=== PATIENT | female | born 1980 | race African-American/Black ===

== ENCOUNTER 2016-06-24 14:56 | Emergency (ER) | payer OTHER ==
[~2016-06-24] VITALS: Ht 175.3 cm; Wt 61.7 kg
[2016-06-24] MEDS ORDERED: NEURONTIN100 MG ORAL (15:09)
[2016-06-24] MEDS ORDERED: CYMBALTA30 MG ORAL (15:09)
[2016-06-24 15:14] VITALS: BP 129/66
[2016-06-24] MEDS ORDERED: Morphine Sulfate 4mg/ml Inj IVP ONE (15:30)
--- NOTE | 2016-06-24 15:34 | Emergency Room Report ---
History of Present Illness General Chief Complaint: Abdominal Pain Source: Patient (MAKSIM ALEJO) Present Illness HPI 35 y/o female c/o RLQ abd pain x 4 hours ago. Pain is sudden onset in RLQ and 10 /10 assoc w/ n/v. No provoking or relieving factors.Has hx of ovarian cysts w/o rupture with chronic abdominal pain that has been evaluated by PCP. Denies any current n/v/f/c/d, abd pain, back pain, neck pain, photophobia, phonophobia, CP , SOB or headache. (MAKSIM ALEJO.[email or web address]) Allergies: Coded Allergies: No Known Allergies (Unverified , 06/24/16) Patient History Past Medical History: see triage record Pertinent Family History: other - ovarian cyst Last Menstrual Period: 06/02/16 Now: No : 0 Para: 0 Immunizations: UTD Reviewed Nursing Documentation: PMH: Agreed, PSxH: Agreed (MAKSIM ALEJO) Nursing Documentation-PMH Hx Cardiac Problems: Yes Hx Gastrointestinal Problems: Yes - ENDOMETRIOSIS ([email or web address]) Review of Systems All Other Systems: negative except mentioned in HPI (MAKSIM ALEJO) Physical Exam Vital Signs Date Time Temp Pulse Resp B/P Pulse Ox O2 Delivery O2 Flow Rate FiO2 06/24/16 15:02 129/66 Room Air 06/24/16 15:14 98.4 94 19 100 Sp02 EP Interpretation: reviewed, normal General Appearance: alert, GCS 15, non-toxic, mild distress - in obvious pain Head: normocephalic, atraumatic Eyes: bilateral eye PERRL, bilateral eye normal inspection ENT: hearing grossly normal, normal pharynx, no angioedema, normal voice Respiratory: chest non-tender, lungs clear, normal breath sounds, speaking full sentences Cardiovascular #1: regular rate, rhythm, no edema Gastrointestinal: normal bowel sounds, soft, non-distended, guarding - RLQ, tenderness - RLQ Genitourinary: no CVA tenderness Neurologic: alert, oriented x3, responsive, motor strength/tone normal, sensory intact, speech normal Skin: normal color, no rash, warm/dry, well hydrated Lymphatic: no adenopathy ([email or web address] [email or web address]) Medical Decision Making PA Attestation Dr. Clancy is my supervising physician with whom patient management has been discussed with. (MAKSIM ALEJO) Diagnostic Impression: Primary Impression: Ovarian cyst Qualified Codes: N83.201 - Unspecified ovarian cyst, right side Additional Impression: Acute cystitis Qualified Codes: N30.00 - Acute cystitis without hematuria ER Course Pt. presents to the ED c/o abdominal pain Ddx considered but are not limited to appendicitis, ovarian torsion, pyelonephritis, crohns, ulcerative colitis, gastroenteritis, ovarian cyst, ectopic Vital signs: are WNL, pt. is afebrile H&PE are most consistent with Ovarian Cyst rupture ORDERS: CT abd pelvis w/ PO and IV contast, UA, CBC, CMP, bHCG ED INTERVENTIONS: Morphine, Toradol, Zofran DISCHARGE: At this time pt. is stable for d/c to home. Eating sandwich and soda from break room prior to discharge. Will provide printed patient care instructions, and any necessary prescriptions. Care plan and follow up instructions have been discussed with the patient prior to discharge. Laboratory Tests Test 06/24/16 15:50 06/24/16 19:05 White Blood Count 7.4 K/UL (4.8-10.8) Red Blood Count 3.90 M/UL (4.20-5.40) L Hemoglobin 12.9 G/DL (12.0-16.0) Hematocrit 36.4 % (37.0-47.0) L Mean Corpuscular Volume 93 FL (80-99) Mean Corpuscular Hemoglobin 33.0 PG (27.0-31.0) H Mean Corpuscular Hemoglobin Concent 35.4 G/DL (32.0-36.0) Red Cell Distribution Width 10.9 % (11.6-14.8) L Platelet Count 242 K/UL (150-450) Mean Platelet Volume 6.0 FL (6.5-10.1) L Neutrophils (%) (Auto) 74.5 % (45.0-75.0) Lymphocytes (%) (Auto) 15.3 % (20.0-45.0) L Monocytes (%) (Auto) 8.7 % (1.0-10.0) Eosinophils (%) (Auto) 0.5 % (0.0-3.0) Basophils (%) (Auto) 1.0 % (0.0-2.0) Sodium Level 137 mEQ/L (135-145) Potassium Level 3.6 mEQ/L (3.4-4.9) Chloride Level 98 mEQ/L (98-107) Carbon Dioxide Level 23 mEQ/L (20-30) Anion Gap 16 (5-15) H Blood Urea Nitrogen 11 mg/dL (7-23) Creatinine 0.9 mg/dL (0.5-0.9) Estimate Glomerular Filtration Rate > 60 mL/min (>60) Glucose Level 111 mg/dL (74-106) H Calcium Level 9.5 mg/dL (8.6-10.2) Total Bilirubin 0.3 mg/dL (0.0-1.2) Aspartate Amino Transferase (AST) 17 U/L (5-40) Alanine Aminotransferase (ALT) 13 U/L (3-33) Alkaline Phosphatase 45 U/L (35-104) Total Protein 6.6 g/dL (6.6-8.7) Albumin 4.2 g/dL (3.5-5.2) Globulin 2.4 g/dL Albumin/Globulin Ratio 1.7 (1.0-2.7) Lipase 29 U/L (< 60) Human Chorionic Gonadotropin, Quant < 1 mIU/mL Urine Color Pale yellow Urine Appearance Clear Urine pH 9 (4.5-8.0) Urine Specific [place] 1.015 (1.005-1.035) Urine Protein Negative (NEGATIVE) Urine Glucose (UA) 1+ (NEGATIVE) H Urine Ketones 2+ (NEGATIVE) H Urine Occult Blood Negative (NEGATIVE) Urine Nitrite Negative (NEGATIVE) Urine Bilirubin Negative (NEGATIVE) Urine Urobilinogen Normal MG/DL (0.0-1.0) Urine Leukocyte Esterase 1+ (NEGATIVE) H Urine RBC 2-4 /HPF (0 - 2) H Urine WBC 5-10 /HPF (0 - 2) H Urine Squamous Epithelial Cells Moderate /LPF (NONE/OCC) H Urine Amorphous Sediment Few /LPF (NONE) H Urine Bacteria Moderate /HPF (NONE) H (MAKSIM ALEJO) ER Course I evaluated this patient in the ED at [facility] with my advanced practice provider ([employer]) colleague, who practices under my general supervision. My impressions concur with the advanced practice provider in regards to their obtained history of present illness, physical exam, general management, diagnosis, and disposition. In particular, I agree with PA-obtained interpretation of imaging, rhythm strip. For the evening and overnight shifts, we do not have the benefit of an in-house Radiologist to review xrays so our interpretation may be limited. Patients are to be discharged only with normal vital signs (or if we discussed a particular exception), a plan for follow-up care, and understand to return to the ED for worsening symptoms. Please see midlevel healthcare providers note for further details. (WINSOME CLANCY M.D.) CT/MRI/US Diagnostic Results CT/MRI/US Diagnostic Results : Imaging Test Ordered: CT Abd/Pelvis with PO and IV contast Impression 5.5 cm cystic lesion rt adnexa most likely physiologic ovarian; cannot r/o adj hydrosalpinx; adj pelvic free fluid suggests recent cyst rupture; rest incl appx NAD; uterine myometrial masses c/w fibroids (SABRY,TAMEEM P.A.) Last Vital Signs Date Time Temp Pulse Resp B/P Pulse Ox O2 Delivery O2 Flow Rate FiO2 06/24/16 15:14 98.4 94 19 129/66 100 Room Air (SABRY,TAMEEM P.A.) Disposition: HOME, SELF-CARE Condition: Stable Scripts Ondansetron Odt* (ZOFRAN ODT*) 8 Mg Tab.rapdis 8 MG ORAL Q6H Y for Nausea & Vomiting, #20 TAB Prov: SABRY,TAMEEM P.A. 06/24/16 Hydrocodone Bit/Acetaminophen 5-325* (NORCO 5-325*) 1 Each Tablet 1 TAB ORAL Q6H Y for For Pain, #10 TAB 0 Refills Prov: SABRY,TAMEEM P.A. 06/24/16 Ibuprofen* (MOTRIN*) 600 Mg Tablet 600 MG ORAL Q8H Y for For Pain, #30 TAB 0 Refills Prov: SABRY,TAMEEM P.A. 06/24/16 Cephalexin* (KEFLEX*) 500 Mg Capsule 500 MG ORAL EVERY 12 HOURS, #14 CAP 0 Refills Prov: SABRY,TAMEEM P.A. 06/24/16 Patient Instructions: Abdominal Pain, Adult SABRY,TAMEEM P.A. Jun 24, 2016 15:34 WINSOME CLANCY M.D. Jun 27, 2016 14:17
[2016-06-24 16:11] LABS: EOSINOPHILS % (AUTO) 0.5 % (0.0-3.0); LYMPHOCYTES % (AUTO) 15.3 % (20.0-45.0); MEAN CORPUSCULAR HGB CONC 35.4 G/DL (32.0-36.0); MEAN CORPUSCULAR VOLUME 93 FL (80-99); MONOCYTES % (AUTO) 8.7 % (1.0-10.0); NEUTROPHILS % (AUTO) 74.5 % (45.0-75.0); PLATELET COUNT 242 K/UL (150-450); RED CELL DISTRIBUTION WIDTH 10.9 % (11.6-14.8); WHITE BLOOD COUNT 7.4 K/UL (4.8-10.8)
[2016-06-24 16:31] LABS: ALANINE AMINOTRANSFERASE 13 U/L (3-33); ALBUMIN/GLOBULIN RATIO 1.7 (1.0-2.7); ANION GAP 16 (5-15); ASPARTATE AMINO TRANSFERASE 17 U/L (5-40); CALCIUM 9.5 mg/dL (8.6-10.2); CARBON DIOXIDE 23 mEQ/L (20-30); CHLORIDE 98 mEQ/L (98-107); CREATININE 0.9 mg/dL (0.5-0.9); GLOMERULAR FILTRATION RATE > 60 mL/min (>60); HEMOLYSIS 6; LIPASE 29 U/L (< 60); POTASSIUM 3.6 mEQ/L (3.4-4.9); SODIUM 137 mEQ/L (135-145); TOTAL PROTEIN 6.6 g/dL (6.6-8.7)
[2016-06-24] MEDS ORDERED: Metoclopramide 10mg/2ml Inj IVP ONE (17:00)
[2016-06-24 17:08] VITALS: BP 121/73
[2016-06-24] MEDS ORDERED: Morphine Sulfate 2mg/ml Inj IVP ONE ×2 (17:30→18:30)
[2016-06-24 19:12] VITALS: BP 127/81
[2016-06-24 19:56] LABS: APPEARANCE,URINE CLEAR; KETONES,URINE 2+ (NEGATIVE); LEUKOCYTE ESTERASE ,URINE 1+ (NEGATIVE); NITRITE,URINE NEGATIVE (NEGATIVE); PH,URINE 9 (4.5-8.0); PROTEIN,URINE NEGATIVE (NEGATIVE); UROBILINOGEN,URINE NORMAL MG/DL (0.0-1.0)
[2016-06-24 20:06] LABS: AMORPHOUS SEDIMENT,UR FEW /LPF; BACTERIA,URINE MODERATE /HPF; SQUAMOUS EPITHELIAL CELL,UR MODERATE /LPF (NONE/OCC)
[2016-06-24] MEDS ORDERED: NORCO 5-325 TA1 EACH ORAL (20:37)
[2016-06-24] MEDS ORDERED: IBUPROFEN600 MG ORAL (20:37)
[2016-06-24] MEDS ORDERED: CEPHALEXIN500 MG ORAL (20:37)
[2016-06-24] MEDS ORDERED: ZOFRAN ODT8 MG ORAL (20:38)
[2016-06-24] MEDS ORDERED: Ketorolac 30mg Inj IV ONE (20:45)
[2016-06-24 21:40] VITALS: BP 121/73
--- NOTE | 2016-06-25 08:45 | Diagnostic Imaging Report ---
Clinical Indication: Right lower quadrant abdominal pain, nausea, vomiting Technique: Patient given oral contrast. IV administration nonionic contrast. Venous phase spiral acquisition obtained through the abdomen and pelvis. Multiplanar reconstructions were generated. Total dose length product 710 mGycm. CTDIvol(s) 14 mGy Comparison: None Findings: There is a complex multicystic mass involving the right ovary. The largest cyst measures 5.7 cm in diameter. The overall lesion measures 8.5 cm long axis dimension. It demonstrates a perceptible wall which is thickened in areas. Adjacent to its is a mixed attenuation area which probably represents an exophytic uterine fibroid. At least one other low-attenuation lesion is seen within the uterine myometrium as well, likely is fibroid.. There is a small amount of cul-de-sac fluid surrounding this. The left ovary is prominent, measuring 3.8 cm long axis dimension. The uterus is unremarkable. What is probably a normal appendix is demonstrated, although this is not for certain. In any case, there are no findings to suggest acute appendicitis. No small bowel distention or small bowel wall thickening. No free intraperitoneal air. Distal esophagus, stomach are unremarkable. The liver is minimally hypoattenuating, consistent with fatty change. No focal abnormalities. Gallbladder, bile ducts, pancreas, spleen, adrenals, kidneys are unremarkable. No mesenteric or retroperitoneal mass or adenopathy. No pelvic adenopathy demonstrated. The included lung bases are clear. The bones are unremarkable.. Impression: Complex mostly system right adnexal mass, as described, with surrounding fluid and complex elements. Differential considerations include physiologic cyst, possibly with underlying cyst rupture. Possibility of hydrosalpinx and possible tubo-ovarian abscess should also be considered. Given slight wall thickening of the cyst, possibility of torsion should also be considered. Multiple uterine fibroids Minimal hepatic steatosis This agrees with the preliminary interpretation provided overnight by Dr. Choudhury The CT scanner at [facility] is accredited by the [employer] and the scans are performed using protocols designed to limit radiation exposure to as low as reasonably achievable to attain images of sufficient resolution adequate for diagnostic evaluation.
== END 2016-06-24 21:40 | disposition home or self-care (01) ==
LOC: EMR 17:05
DX: N83.201 Unspecified ovarian cyst, right side (principal); N30.00 Acute cystitis without hematuria
CPT/HCPCS: 36415; 74177; 80053; 81003; 83690; 84702; 85025; 87086; 96374; 96375; 99284; J1885; J2270; J2405; J2765; Q9967